=== PATIENT | female | born 1995 | race Caucasian/White ===

== ENCOUNTER 2019-04-07 07:08 | Emergency (ER) | payer MEDICARE, OTHER ==
[~2019-04-07] VITALS: Ht 152.4 cm; Wt 86.0 kg
[~2019-04-07 07:08] MED LIST: ALBU8.5H8; CEPH500T6; ENAL10TA88
[2019-04-07 07:13] VITALS: BP 98/43; PULSE 103; RESP 18; Ht 152.4 cm; Wt 86.0 kg
[2019-04-07] MEDS ORDERED: ONDANSETRON 4 MG INJ IV STA (07:18)
[2019-04-07] MEDS ORDERED: morphine 4 MG/ML VIAL IV STA (07:18)
--- NOTE | 2019-04-07 08:44 | ERD ---
ER Documentation Chief Complaint Chief Complaint CHEST PAIN SINCE THIS AM POST DIALYSIS HPI Patient is a 23-year-old female with hypertension and dialysis who presents with chest pain. The patient was brought in by ambulance. The patient said that she has had chest pain "for a bit". She said the symptoms started this morning at 6 AM while she was getting dialysis. She completed her dialysis and then was brought in by ambulance. She had midsternal chest pain which she describes as a pressure which comes and goes and is worse with palpation. Upon review of old medical records this is the patient's first visit to the emergency department. She does have a primary doctor. ROS All systems reviewed and are negative except as per history of present illness. Medications Home Meds Reported Medications Albuterol Sulfate* (Proair HFA*) 8.5 Gm Hfa.aer.ad 02/19/11 Cephalexin Monohydrate (Cephalexin) 500 Mg Tablet 02/19/11 Enalapril (Enalapril) 10 Mg Tablet 02/19/11 Allergies Allergies: Coded Allergies: No Known Drug Allergies (Verified Allergy, Mild, 02/19/11) PMhx/Soc Anesthesia Reaction: No Hx Neurological Disorder: No Hx Respiratory Disorders: No Hx Cardiac Disorders: No Hx Psychiatric Problems: No Hx Miscellaneous Medical Probl: No Hx Alcohol Use: No Hx Substance Use: No Hx Tobacco Use: No Smoking Status: Never smoker FmHx Family History: diabetes, coronary disease Physical Exam Vitals Vital Signs Date Temp Pulse Resp B/P (MAP) Pulse Ox O2 O2 Flow FiO2 Time Delivery Rate 04/07/19 98.1 103 18 98/43 (61) 99 07:13 Physical Exam Const: No acute distress Head: Atraumatic Eyes: Normal Conjunctiva ENT: Normal External Ears, Nose and Mouth. Neck: Full range of motion. No meningismus. Resp: Clear to auscultation bilaterally Cardio: Regular rate and rhythm, no murmurs, chest wall pain with palpation reproduces pain Abd: Soft, non tender, non distended. Normal bowel sounds Skin: No petechiae or rashes Back: No midline or flank tenderness Ext: No cyanosis, or edema Neur: Awake and alert Psych: Normal Mood and Affect Result Diagram: 04/07/1928 04/07/1928 Results 24 hrs Laboratory Tests Test 04/07/19 07:28 White Blood Count 12.4 10^3/ul Red Blood Count 4.52 10^6/ul Hemoglobin 13.6 g/dl Hematocrit 42.9 % Mean Corpuscular Volume 94.9 fl Mean Corpuscular Hemoglobin 30.1 pg Mean Corpuscular Hemoglobin Concent 31.7 g/dl Red Cell Distribution Width 13.4 % Platelet Count 223 10^3/UL Mean Platelet Volume 9.7 fl Immature Granulocytes % 2.300 % Neutrophils % 78.6 % Lymphocytes % 14.3 % Monocytes % 3.3 % Eosinophils % 0.6 % Basophils % 0.9 % Nucleated Red Blood Cells % 0.0 /100WBC Immature Granulocytes # 0.290 10^3/ul Neutrophils # 9.8 10^3/ul Lymphocytes # 1.8 10^3/ul Monocytes # 0.4 10^3/ul Eosinophils # 0.1 10^3/ul Basophils # 0.1 10^3/ul Nucleated Red Blood Cells # 0.0 10^3/ul Sodium Level 140 mmol/L Potassium Level 3.8 mmol/L Chloride Level 96 mmol/L Carbon Dioxide Level 33 mmol/L Anion Gap 11 Blood Urea Nitrogen 20 mg/dl Creatinine 2.96 mg/dl Est Glomerular Filtrat Rate mL/min 20 mL/min Glucose Level 117 mg/dl Calcium Level 9.6 mg/dl Troponin I < 0.012 ng/ml Serum HCG, Qualitative NEGATIVE Current Medications Medications Dose Sig/Tony Start Time Status Last (Trade) Ordered Route PRN Stop Time Admin Dose Reason Admin Morphine 4 mg ONCE STAT 04/07/19 DC 04/07/19 Sulfate IV 07:18 04/07/19 07:59 (morphine) 07:19 Ondansetron 4 mg ONCE STAT 04/07/19 DC 04/07/19 HCl (Zofran IV 07:18 04/07/19 07:59 Inj) 07:19 Procedures/MDM EKG #1 read by me: Rate/Rhythm: Sinus tachycardia rate of 103 Intervals: Normal Impression: Tachycardia without ischemia EKG #2 read by me: Rate/Rhythm: Sinus tachycardia at a rate of 105 Intervals: Normal Impression: Sinus tachycardia without ischemia Chest x-ray negative per radiology. Patient is a 23-year-old female who presents with chest pain. EKGs did not show any signs of ischemia. Chest x-ray was negative. Troponin is negative. At this point I doubt acute coronary syndrome, pneumonia, pneumothorax, pulmonary embolism, or aortic dissection. Patient will be discharged home but will need to follow-up closely with her primary doctor within 24 to 48 hours. The patient can return for any worsening symptoms. Departure Diagnosis: Primary Impression: Chest pain Chest pain type: unspecified Qualified Codes: R07.9 - Chest pain, unspecified Condition: Fair Patient Instructions: Chest Pain, Uncertain Cause Referrals: Dr. Eugene Additional Instructions: Call your primary care doctor TOMORROW for an appointment during the next 1-2 days.See the doctor sooner or return here if your condition worsens before your appointment time. CECELIA PAULINO MD Apr 07, 2019 08:44
== END 2019-04-07 10:57 | disposition home or self-care (01) ==
LOC: E/R 07:08
DX: I10 Essential (primary) hypertension (principal)
CPT/HCPCS: 71045; 80048; 84484; 84703; 85025; 93005; 96374; 96375; 99285; J2270; J2405

== ENCOUNTER 2019-08-21 18:41 | Inpatient (IN) | payer MEDICARE, OTHER ==
[~2019-08-21] VITALS: Ht 162.6 cm; Wt 120.1 kg
[2019-08-21 23:55] VITALS: Ht 162.6 cm; Wt 120.1 kg
[2019-08-22] VITALS: BP 112/70; PULSE 107; RESP 18
[2019-08-22] MEDS ORDERED: GUAIFENESIN 20 MG/ML 5ML CUP PO PRN (01:30)
[2019-08-22] MEDS ORDERED: ACETAMINOPHEN 325 MG TAB PO PRN ×2 (01:30→07:30)
[2019-08-22] MEDS ORDERED: PENDING SANTYL ORDER FOR WOUND CARE XX PRN (04:00)
[2019-08-22] MEDS ORDERED: [UNRECOGNIZED DRUG - REMARK] XX SCH (04:00)
[2019-08-22] MEDS ORDERED: [UNRECOGNIZED DRUG - REMARK] XX SCH (04:00)
[2019-08-22] MEDS ORDERED: PANTOPRAZOLE (EC) 40 MG TAB PO SCH (06:00)
[2019-08-22 06:42] VITALS: BP 106/52; PULSE 101
[2019-08-22] MEDS: FUROSEMIDE 40 MG TAB PO SCH ×2 (06:42→19:51)
[2019-08-22 07:30] VITALS: BP 96/52; PULSE 98; RESP 20
[2019-08-22] MEDS ORDERED: SEVELAMER CARBONATE 800 MG TABLET PO SCH (07:35)
[2019-08-22] MEDS: PANTOPRAZOLE (EC) 40 MG TAB PO SCH ×2 (07:35→17:35)
[2019-08-22] MEDS: IPRATROPIUM (NEB) 0.5 MG/2.5 ML AMP HHN SCH ×3 (08:02→20:58)
[2019-08-22] MEDS: LEVALBUTEROL (NEB) 1.25 MG/0.5 ML AMP HHN SCH ×3 (08:02→20:58)
[2019-08-22] MEDS: POLYETHYLENE GLYCOL 17 GM PACKET PO SCH ×2 (09:00→21:00)
[2019-08-22] MEDS: METOPROLOL 25 MG TAB PO SCH ×2 (09:00→21:35)
[2019-08-22] MEDS: SEVELAMER CARBONATE 800 MG TABLET PO SCH ×3 (09:00→17:35)
[2019-08-22] MEDS ORDERED: METOPROLOL 25 MG TAB PO SCH (09:00)
[2019-08-22] MEDS ORDERED: LACTULOSE 30ML CUP PO SCH (09:00)
[2019-08-22] MEDS: LACTULOSE 30ML CUP PO SCH ×3 (09:22→21:33)
[2019-08-22] MEDS: SERTRALINE 50 MG TAB PO SCH (09:22)
[2019-08-22] MEDS: MULTIVITAMIN PO SCH (09:22)
[2019-08-22] MEDS: FOLIC ACID PO SCH (09:22)
[2019-08-22] MEDS: ASCORBIC ACID PO SCH (09:22)
[2019-08-22] MEDS: VITAMIN B COMPLEX PO SCH (09:22)
[2019-08-22] MEDS: GABAPENTIN 100 MG CAP PO SCH ×2 (09:25→21:37)
[2019-08-22] MEDS: SENNA TAB PO SCH ×2 (09:25→21:36)
[2019-08-22] MEDS: LIDOCAINE 5% PATCH TD SCH (09:27)
[2019-08-22] MEDS: FLUTICASONE/VILANTEROL 200-25 INH DEVICE INH SCH (09:33)
[2019-08-22] MEDS ORDERED: FLU VACC QS 2019-20 (6MOS UP) 0.5 ML SYG IM* ONE (11:00)
[2019-08-22 14:00] VITALS: BP 112/66; PULSE 105; RESP 18
[2019-08-22] MEDS ORDERED: BISACODYL 10 MG SUPP PR PRN (15:00)
[2019-08-22] MEDS ORDERED: NA PHOSPHATE/BIPHOS 133 ML ENEMA PR PRN (15:00)
[2019-08-22 19:59] VITALS: BP 109/55; PULSE 102; RESP 18
[2019-08-22] MEDS: OXYCODONE/ACETAMINOPHEN (5/325) TAB PO PRN (21:36)
[2019-08-22] MEDS: MONTELUKAST 10 MG TAB PO SCH (21:37)
[2019-08-22] MEDS: TOPIRAMATE 25 MG TAB PO SCH (21:38)
[2019-08-23] VITALS (19 sets, daily range): BP systolic 74–110; BP diastolic 43–65; PULSE 88–100; RESP 16–18
[2019-08-23] MEDS: LEVALBUTEROL (NEB) 1.25 MG/0.5 ML AMP HHN SCH ×4 (02:00→20:28)
[2019-08-23] MEDS: IPRATROPIUM (NEB) 0.5 MG/2.5 ML AMP HHN SCH ×4 (02:00→20:28)
[2019-08-23] MEDS: FUROSEMIDE 40 MG TAB PO SCH ×2 (06:43→18:00)
[2019-08-23] MEDS: FOLIC ACID PO SCH (08:19)
[2019-08-23] MEDS: VITAMIN B COMPLEX PO SCH (08:19)
[2019-08-23] MEDS: ASCORBIC ACID PO SCH (08:19)
[2019-08-23] MEDS: MULTIVITAMIN PO SCH (08:19)
[2019-08-23] MEDS: SEVELAMER CARBONATE 800 MG TABLET PO SCH ×3 (08:20→17:35)
[2019-08-23] MEDS: PANTOPRAZOLE (EC) 40 MG TAB PO SCH ×2 (08:20→17:35)
[2019-08-23] MEDS: METOPROLOL 25 MG TAB PO SCH ×2 (08:24→21:00)
[2019-08-23] MEDS: POLYETHYLENE GLYCOL 17 GM PACKET PO SCH ×2 (08:25→21:00)
[2019-08-23] MEDS: GABAPENTIN 100 MG CAP PO SCH ×2 (08:26→20:16)
[2019-08-23] MEDS: SENNA TAB PO SCH ×2 (08:27→20:16)
[2019-08-23] MEDS: SERTRALINE 50 MG TAB PO SCH (08:27)
[2019-08-23] MEDS: FLUTICASONE/VILANTEROL 200-25 INH DEVICE INH SCH (08:28)
[2019-08-23] MEDS: LACTULOSE 30ML CUP PO SCH ×3 (08:28→20:18)
[2019-08-23] MEDS: LIDOCAINE 5% PATCH TD SCH (11:19)
[2019-08-23] MEDS: HEPARIN 5,000 UNIT/1 ML VIAL SC SCH ×2 (11:24→20:49)
[2019-08-23] MEDS: BUPROPION 100 MG TAB PO SCH (13:00)
[2019-08-23] MEDS: LIDOCAINE 1% (MDV) 20 ML INJ INJ PRN (15:50)
[2019-08-23] MEDS ORDERED: CEFTRIAXONE 1 GM/50 ML (PMX) 50 ML IVPB SCH (16:00)
[2019-08-23] MEDS ORDERED: VANCOMYCIN IV PER PHARMACY XX SCH (16:30)
[2019-08-23] MEDS: ALBUMIN HUMAN 25% 100 ML IV PRN (17:27)
[2019-08-23] MEDS ORDERED: VANCOMYCIN HCL 2 GM in SOD CHLORIDE 0.9% 500 ML IVPB SCH (20:00)
[2019-08-23] MEDS: MONTELUKAST 10 MG TAB PO SCH (20:17)
[2019-08-23] MEDS: TOPIRAMATE 25 MG TAB PO SCH (20:17)
[2019-08-23] MEDS: OXYCODONE/ACETAMINOPHEN (5/325) TAB PO PRN (20:17)
[2019-08-23] MEDS ORDERED: AMOXICILLIN 250 MG CAP PO SCH (23:00)
[2019-08-24 02:00] VITALS: BP 107/63; PULSE 96; RESP 18
[2019-08-24] MEDS: LEVALBUTEROL (NEB) 1.25 MG/0.5 ML AMP HHN SCH ×4 (02:00→19:58)
[2019-08-24] MEDS: IPRATROPIUM (NEB) 0.5 MG/2.5 ML AMP HHN SCH ×4 (02:00→19:58)
[2019-08-24] MEDS: FUROSEMIDE 40 MG TAB PO SCH ×2 (06:34→17:57)
[2019-08-24] MEDS: AMOXICILLIN 250 MG CAP PO SCH ×2 (06:34→15:08)
[2019-08-24 08:00] VITALS: BP 129/56; PULSE 93; RESP 18
[2019-08-24] MEDS: SEVELAMER CARBONATE 800 MG TABLET PO SCH ×3 (08:40→17:56)
[2019-08-24] MEDS: FOLIC ACID PO SCH (08:40)
[2019-08-24] MEDS: PANTOPRAZOLE (EC) 40 MG TAB PO SCH ×2 (08:40→17:57)
[2019-08-24] MEDS: VITAMIN B COMPLEX PO SCH (08:40)
[2019-08-24] MEDS: ASCORBIC ACID PO SCH (08:40)
[2019-08-24] MEDS: MULTIVITAMIN PO SCH (08:40)
[2019-08-24] MEDS: POLYETHYLENE GLYCOL 17 GM PACKET PO SCH ×2 (09:00→20:49)
[2019-08-24] MEDS: LIDOCAINE 5% PATCH TD SCH (09:00)
[2019-08-24] MEDS: HEPARIN 5,000 UNIT/1 ML VIAL SC SCH ×2 (09:20→20:55)
[2019-08-24] MEDS: SENNA TAB PO SCH ×2 (09:21→20:52)
[2019-08-24] MEDS: BUPROPION 100 MG TAB PO SCH (09:22)
[2019-08-24] MEDS: LACTULOSE 30ML CUP PO SCH ×3 (09:22→20:49)
[2019-08-24] MEDS: SERTRALINE 50 MG TAB PO SCH (09:22)
[2019-08-24] MEDS: GABAPENTIN 100 MG CAP PO SCH ×2 (09:22→20:52)
[2019-08-24] MEDS: METOPROLOL 25 MG TAB PO SCH ×2 (09:25→20:50)
[2019-08-24] MEDS: FLUTICASONE/VILANTEROL 200-25 INH DEVICE INH SCH (09:25)
[2019-08-24 14:00] VITALS: BP 103/53; PULSE 91; RESP 18
[2019-08-24] MEDS ORDERED: FLU VACC QS 2019-20 (6MOS UP) 0.5 ML SYG IM* ONE (14:00)
[2019-08-24] MEDS ORDERED: VANCOMYCIN IV PER PHARMACY XX SCH (19:00)
[2019-08-24 20:00] VITALS: BP 98/70; PULSE 92; RESP 18
[2019-08-24] MEDS: TOPIRAMATE 25 MG TAB PO SCH (20:52)
[2019-08-24] MEDS: MONTELUKAST 10 MG TAB PO SCH (20:52)
[2019-08-25] VITALS (19 sets, daily range): BP systolic 89–116; BP diastolic 50–62; PULSE 82–97; RESP 18–20
[2019-08-25] MEDS: LEVALBUTEROL (NEB) 1.25 MG/0.5 ML AMP HHN SCH ×4 (01:50→20:00)
[2019-08-25] MEDS: IPRATROPIUM (NEB) 0.5 MG/2.5 ML AMP HHN SCH ×4 (01:50→20:00)
[2019-08-25] MEDS ORDERED: VANCOMYCIN IV PER PHARMACY XX SCH (06:00)
[2019-08-25] MEDS ORDERED: VANCOMYCIN HCL 2 GM in SOD CHLORIDE 0.9% 500 ML IVPB SCH (06:00)
[2019-08-25] MEDS: FUROSEMIDE 40 MG TAB PO SCH (06:49)
[2019-08-25] MEDS: SEVELAMER CARBONATE 800 MG TABLET PO SCH ×3 (07:35→17:35)
[2019-08-25] MEDS: PANTOPRAZOLE (EC) 40 MG TAB PO SCH ×2 (08:56→17:35)
[2019-08-25] MEDS: FOLIC ACID PO SCH (08:58)
[2019-08-25] MEDS: MULTIVITAMIN PO SCH (08:58)
[2019-08-25] MEDS: VITAMIN B COMPLEX PO SCH (08:58)
[2019-08-25] MEDS: ASCORBIC ACID PO SCH (08:58)
[2019-08-25] MEDS: SERTRALINE 50 MG TAB PO SCH (08:58)
[2019-08-25] MEDS: BUPROPION 100 MG TAB PO SCH (08:58)
[2019-08-25] MEDS: SENNA TAB PO SCH ×2 (08:58→21:00)
[2019-08-25] MEDS: GABAPENTIN 100 MG CAP PO SCH ×2 (08:59→20:49)
[2019-08-25] MEDS: LIDOCAINE 5% PATCH TD SCH ×3 (09:00→10:07)
[2019-08-25] MEDS: LACTULOSE 30ML CUP PO SCH ×3 (09:00→21:00)
[2019-08-25] MEDS: METOPROLOL 25 MG TAB PO SCH (09:00)
[2019-08-25] MEDS: POLYETHYLENE GLYCOL 17 GM PACKET PO SCH ×2 (09:00→21:00)
[2019-08-25] MEDS: FLUTICASONE/VILANTEROL 200-25 INH DEVICE INH SCH (09:04)
[2019-08-25] MEDS: HEPARIN 5,000 UNIT/1 ML VIAL SC SCH ×2 (09:06→21:00)
[2019-08-25] MEDS ORDERED: MIDODRINE 5 MG TAB PO PRN (11:00)
[2019-08-25] MEDS: LIDOCAINE 1% (MDV) 20 ML INJ INJ PRN (19:51)
[2019-08-25] MEDS: ALBUMIN HUMAN 25% 100 ML IV PRN (19:59)
[2019-08-25] MEDS: TOPIRAMATE 25 MG TAB PO SCH (20:49)
[2019-08-25] MEDS: MONTELUKAST 10 MG TAB PO SCH (20:49)
[2019-08-25] MEDS: AMOXICILLIN 250 MG CAP PO SCH (23:52)
[2019-08-25] MEDS: OXYCODONE/ACETAMINOPHEN (5/325) TAB PO PRN (23:58)
[2019-08-26] MEDS: LEVALBUTEROL (NEB) 1.25 MG/0.5 ML AMP HHN SCH ×4 (01:42→20:52)
[2019-08-26] MEDS: IPRATROPIUM (NEB) 0.5 MG/2.5 ML AMP HHN SCH ×4 (01:42→20:52)
[2019-08-26 02:00] VITALS: BP 97/50; PULSE 82; RESP 18
[2019-08-26 07:00] VITALS: BP 123/59; PULSE 89; RESP 18
[2019-08-26] MEDS: FOLIC ACID PO SCH (08:08)
[2019-08-26] MEDS: VITAMIN B COMPLEX PO SCH (08:08)
[2019-08-26] MEDS: SERTRALINE 50 MG TAB PO SCH (08:08)
[2019-08-26] MEDS: MULTIVITAMIN PO SCH (08:08)
[2019-08-26] MEDS: ASCORBIC ACID PO SCH (08:08)
[2019-08-26] MEDS: BUPROPION 100 MG TAB PO SCH (08:08)
[2019-08-26] MEDS: PANTOPRAZOLE (EC) 40 MG TAB PO SCH ×2 (08:08→18:19)
[2019-08-26] MEDS: SENNA TAB PO SCH ×2 (08:09→20:56)
[2019-08-26] MEDS: GABAPENTIN 100 MG CAP PO SCH ×2 (08:10→20:55)
[2019-08-26] MEDS: LIDOCAINE 5% PATCH TD SCH (08:11)
[2019-08-26] MEDS: LACTULOSE 30ML CUP PO SCH ×3 (08:12→21:05)
[2019-08-26] MEDS: FLUTICASONE/VILANTEROL 200-25 INH DEVICE INH SCH (08:14)
[2019-08-26] MEDS: HEPARIN 5,000 UNIT/1 ML VIAL SC SCH ×2 (08:15→21:30)
[2019-08-26] MEDS: SEVELAMER CARBONATE 800 MG TABLET PO SCH ×3 (08:23→18:19)
[2019-08-26] MEDS: METOPROLOL 25 MG TAB PO SCH ×3 (08:24→20:58)
[2019-08-26] MEDS: POLYETHYLENE GLYCOL 17 GM PACKET PO SCH ×2 (08:37→20:58)
[2019-08-26 14:00] VITALS: BP 85/42; PULSE 51; RESP 18
[2019-08-26] MEDS: AMOXICILLIN 250 MG CAP PO SCH (14:49)
[2019-08-26 18:00] VITALS: BP 107/58; PULSE 98; RESP 18
[2019-08-26 20:00] VITALS: BP 92/49; PULSE 98; RESP 18
[2019-08-26] MEDS: TOPIRAMATE 25 MG TAB PO SCH (20:55)
[2019-08-26] MEDS: MONTELUKAST 10 MG TAB PO SCH (20:56)
[2019-08-26] MEDS: OXYCODONE/ACETAMINOPHEN (5/325) TAB PO PRN (21:00)
[2019-08-27 02:00] VITALS: BP 110/52; PULSE 95; RESP 18
[2019-08-27] MEDS: LEVALBUTEROL (NEB) 1.25 MG/0.5 ML AMP HHN SCH ×4 (02:00→19:13)
[2019-08-27] MEDS: IPRATROPIUM (NEB) 0.5 MG/2.5 ML AMP HHN SCH ×4 (02:00→19:13)
[2019-08-27 07:00] VITALS: BP 127/62; PULSE 85; RESP 18
[2019-08-27 08:45] VITALS: BP 120/60; PULSE 83; RESP 18
[2019-08-27] MEDS: SENNA TAB PO SCH ×2 (08:57→21:18)
[2019-08-27] MEDS: SEVELAMER CARBONATE 800 MG TABLET PO SCH ×3 (08:57→18:37)
[2019-08-27] MEDS: SERTRALINE 50 MG TAB PO SCH (08:58)
[2019-08-27] MEDS: GABAPENTIN 100 MG CAP PO SCH ×2 (08:58→21:18)
[2019-08-27] MEDS: PANTOPRAZOLE (EC) 40 MG TAB PO SCH ×2 (08:58→18:37)
[2019-08-27] MEDS: BUPROPION 100 MG TAB PO SCH (08:58)
[2019-08-27] MEDS: MULTIVITAMIN PO SCH (08:59)
[2019-08-27] MEDS: LACTULOSE 30ML CUP PO SCH ×3 (08:59→21:19)
[2019-08-27] MEDS: FLUTICASONE/VILANTEROL 200-25 INH DEVICE INH SCH (08:59)
[2019-08-27] MEDS: ASCORBIC ACID PO SCH (08:59)
[2019-08-27] MEDS: VITAMIN B COMPLEX PO SCH (08:59)
[2019-08-27] MEDS: FOLIC ACID PO SCH (08:59)
[2019-08-27] MEDS: POLYETHYLENE GLYCOL 17 GM PACKET PO SCH ×2 (09:00→21:00)
[2019-08-27] MEDS: LIDOCAINE 5% PATCH TD SCH (09:00)
[2019-08-27] MEDS: METOPROLOL 25 MG TAB PO SCH ×2 (09:00→21:00)
[2019-08-27] MEDS: HEPARIN 5,000 UNIT/1 ML VIAL SC SCH ×2 (09:08→21:37)
[2019-08-27 14:00] VITALS: BP 111/64; PULSE 108; RESP 18
[2019-08-27] MEDS: AMOXICILLIN 250 MG CAP PO SCH (14:36)
[2019-08-27 19:30] VITALS: BP 109/48; RESP 18
[2019-08-27] MEDS: MONTELUKAST 10 MG TAB PO SCH (21:18)
[2019-08-27] MEDS: TOPIRAMATE 25 MG TAB PO SCH (21:18)
[2019-08-27] MEDS: OXYCODONE/ACETAMINOPHEN (5/325) TAB PO PRN (21:18)
[2019-08-28] VITALS (17 sets, daily range): BP systolic 108–140; BP diastolic 10–64; PULSE 84–100; RESP 18–20
[2019-08-28] MEDS: IPRATROPIUM (NEB) 0.5 MG/2.5 ML AMP HHN SCH ×4 (01:43→20:00)
[2019-08-28] MEDS: LEVALBUTEROL (NEB) 1.25 MG/0.5 ML AMP HHN SCH ×4 (01:43→20:00)
[2019-08-28] MEDS: POLYETHYLENE GLYCOL 17 GM PACKET PO SCH ×2 (09:00→21:00)
[2019-08-28] MEDS: METOPROLOL 25 MG TAB PO SCH ×2 (09:00→22:04)
[2019-08-28] MEDS: LIDOCAINE 5% PATCH TD SCH (09:00)
[2019-08-28] MEDS: FOLIC ACID PO SCH (09:21)
[2019-08-28] MEDS: ASCORBIC ACID PO SCH (09:21)
[2019-08-28] MEDS: BUPROPION 100 MG TAB PO SCH (09:21)
[2019-08-28] MEDS: LACTULOSE 30ML CUP PO SCH ×3 (09:21→22:05)
[2019-08-28] MEDS: VITAMIN B COMPLEX PO SCH (09:21)
[2019-08-28] MEDS: FLUTICASONE/VILANTEROL 200-25 INH DEVICE INH SCH (09:21)
[2019-08-28] MEDS: MULTIVITAMIN PO SCH (09:21)
[2019-08-28] MEDS: GABAPENTIN 100 MG CAP PO SCH ×2 (09:22→22:03)
[2019-08-28] MEDS: SERTRALINE 50 MG TAB PO SCH (09:22)
[2019-08-28] MEDS: SEVELAMER CARBONATE 800 MG TABLET PO SCH ×3 (09:22→17:49)
[2019-08-28] MEDS: SENNA TAB PO SCH ×2 (09:22→22:03)
[2019-08-28] MEDS: PANTOPRAZOLE (EC) 40 MG TAB PO SCH ×2 (09:22→17:49)
[2019-08-28] MEDS: HEPARIN 5,000 UNIT/1 ML VIAL SC SCH ×2 (09:26→22:21)
[2019-08-28] MEDS: AMOXICILLIN 250 MG CAP PO SCH (15:04)
[2019-08-28] MEDS: LIDOCAINE 1% (MDV) 20 ML INJ INJ PRN (18:08)
[2019-08-28] MEDS: TOPIRAMATE 25 MG TAB PO SCH (22:03)
[2019-08-28] MEDS: MONTELUKAST 10 MG TAB PO SCH (22:03)
[2019-08-28] MEDS: OXYCODONE/ACETAMINOPHEN (5/325) TAB PO PRN (22:04)
[2019-08-29] MEDS: LEVALBUTEROL (NEB) 1.25 MG/0.5 ML AMP HHN SCH ×4 (01:05→20:31)
[2019-08-29] MEDS: IPRATROPIUM (NEB) 0.5 MG/2.5 ML AMP HHN SCH ×4 (01:05→20:31)
[2019-08-29 06:19] VITALS: BP 98/58; PULSE 82; RESP 18
[2019-08-29 07:30] VITALS: BP 134/66; PULSE 76; RESP 20
[2019-08-29] MEDS: FLUTICASONE/VILANTEROL 200-25 INH DEVICE INH SCH (08:43)
[2019-08-29] MEDS: BUPROPION 100 MG TAB PO SCH (08:43)
[2019-08-29] MEDS: LACTULOSE 30ML CUP PO SCH ×3 (08:43→20:25)
[2019-08-29] MEDS: GABAPENTIN 100 MG CAP PO SCH ×2 (08:44→20:25)
[2019-08-29] MEDS: METOPROLOL 25 MG TAB PO SCH ×2 (08:46→20:26)
[2019-08-29] MEDS: HEPARIN 5,000 UNIT/1 ML VIAL SC SCH ×2 (08:48→20:33)
[2019-08-29] MEDS: PANTOPRAZOLE (EC) 40 MG TAB PO SCH ×2 (08:51→17:42)
[2019-08-29] MEDS: SERTRALINE 50 MG TAB PO SCH (08:51)
[2019-08-29] MEDS: SENNA TAB PO SCH ×2 (08:51→20:25)
[2019-08-29] MEDS: ASCORBIC ACID PO SCH (08:54)
[2019-08-29] MEDS: VITAMIN B COMPLEX PO SCH (08:54)
[2019-08-29] MEDS: FOLIC ACID PO SCH (08:54)
[2019-08-29] MEDS: MULTIVITAMIN PO SCH (08:54)
[2019-08-29] MEDS: SEVELAMER CARBONATE 800 MG TABLET PO SCH ×3 (08:54→17:41)
[2019-08-29] MEDS: LIDOCAINE 5% PATCH TD SCH (09:00)
[2019-08-29] MEDS: POLYETHYLENE GLYCOL 17 GM PACKET PO SCH ×2 (09:00→21:00)
[2019-08-29 14:00] VITALS: BP 121/57; PULSE 88; RESP 20
[2019-08-29] MEDS: AMOXICILLIN 250 MG CAP PO SCH (15:13)
[2019-08-29 20:00] VITALS: BP 118/62; PULSE 77; RESP 19
[2019-08-29] MEDS: MONTELUKAST 10 MG TAB PO SCH (20:25)
[2019-08-29] MEDS: OXYCODONE/ACETAMINOPHEN (5/325) TAB PO PRN (20:25)
[2019-08-29] MEDS: TOPIRAMATE 25 MG TAB PO SCH (20:25)
[2019-08-30] VITALS (16 sets, daily range): BP systolic 89–144; BP diastolic 44–73; PULSE 82–103; RESP 16–19
[2019-08-30] MEDS: LEVALBUTEROL (NEB) 1.25 MG/0.5 ML AMP HHN SCH ×4 (02:00→18:15)
[2019-08-30] MEDS: IPRATROPIUM (NEB) 0.5 MG/2.5 ML AMP HHN SCH ×4 (02:00→18:15)
[2019-08-30] MEDS ORDERED: LIDOCAINE 4% CR TOP PRN (08:00)
[2019-08-30] MEDS: PANTOPRAZOLE (EC) 40 MG TAB PO SCH ×2 (08:00→17:45)
[2019-08-30] MEDS: FOLIC ACID PO SCH (08:01)
[2019-08-30] MEDS: MULTIVITAMIN PO SCH (08:01)
[2019-08-30] MEDS: SEVELAMER CARBONATE 800 MG TABLET PO SCH ×3 (08:01→17:45)
[2019-08-30] MEDS: ASCORBIC ACID PO SCH (08:01)
[2019-08-30] MEDS: VITAMIN B COMPLEX PO SCH (08:01)
[2019-08-30] MEDS: POLYETHYLENE GLYCOL 17 GM PACKET PO SCH ×2 (09:00→21:00)
[2019-08-30] MEDS: LIDOCAINE 5% PATCH TD SCH (09:00)
[2019-08-30] MEDS: METOPROLOL 25 MG TAB PO SCH ×2 (09:00→21:00)
[2019-08-30] MEDS: LACTULOSE 30ML CUP PO SCH ×3 (09:15→22:43)
[2019-08-30] MEDS: GABAPENTIN 100 MG CAP PO SCH ×2 (09:16→22:43)
[2019-08-30] MEDS: FLUTICASONE/VILANTEROL 200-25 INH DEVICE INH SCH (09:16)
[2019-08-30] MEDS: SENNA TAB PO SCH ×2 (09:16→22:43)
[2019-08-30] MEDS: BUPROPION 100 MG TAB PO SCH (09:17)
[2019-08-30] MEDS: SERTRALINE 50 MG TAB PO SCH (09:17)
[2019-08-30] MEDS: HEPARIN 5,000 UNIT/1 ML VIAL SC SCH ×2 (09:20→22:53)
[2019-08-30] MEDS: LIDOCAINE 1% (MDV) 20 ML INJ INJ PRN (18:57)
[2019-08-30] MEDS: OXYCODONE/ACETAMINOPHEN (5/325) TAB PO PRN (22:42)
[2019-08-30] MEDS: TOPIRAMATE 25 MG TAB PO SCH (22:43)
[2019-08-30] MEDS: MONTELUKAST 10 MG TAB PO SCH (22:43)
[2019-08-31] MEDS: IPRATROPIUM (NEB) 0.5 MG/2.5 ML AMP HHN SCH ×4 (01:49→20:00)
[2019-08-31] MEDS: LEVALBUTEROL (NEB) 1.25 MG/0.5 ML AMP HHN SCH ×4 (01:49→20:00)
[2019-08-31 02:00] VITALS: BP 89/51; PULSE 83; RESP 18
[2019-08-31 07:30] VITALS: BP 109/55; PULSE 79; RESP 20
[2019-08-31] MEDS: PANTOPRAZOLE (EC) 40 MG TAB PO SCH ×2 (07:53→17:38)
[2019-08-31] MEDS: VITAMIN B COMPLEX PO SCH (07:53)
[2019-08-31] MEDS: SEVELAMER CARBONATE 800 MG TABLET PO SCH ×4 (07:53→17:38)
[2019-08-31] MEDS: ASCORBIC ACID PO SCH (07:53)
[2019-08-31] MEDS: FOLIC ACID PO SCH (07:53)
[2019-08-31] MEDS: MULTIVITAMIN PO SCH (07:53)
[2019-08-31 08:00] VITALS: BP 109/55; PULSE 79; RESP 20
[2019-08-31] MEDS: LIDOCAINE 5% PATCH TD SCH (09:00)
[2019-08-31] MEDS: METOPROLOL 25 MG TAB PO SCH ×2 (09:00→20:35)
[2019-08-31] MEDS: POLYETHYLENE GLYCOL 17 GM PACKET PO SCH (09:00)
[2019-08-31] MEDS: FLUTICASONE/VILANTEROL 200-25 INH DEVICE INH SCH (09:25)
[2019-08-31] MEDS: SERTRALINE 50 MG TAB PO SCH (09:26)
[2019-08-31] MEDS: GABAPENTIN 100 MG CAP PO SCH ×2 (09:26→20:35)
[2019-08-31] MEDS: LACTULOSE 30ML CUP PO SCH ×3 (09:26→20:31)
[2019-08-31] MEDS: SENNA TAB PO SCH ×2 (09:26→20:36)
[2019-08-31] MEDS: BUPROPION 100 MG TAB PO SCH (09:26)
[2019-08-31] MEDS: HEPARIN 5,000 UNIT/1 ML VIAL SC SCH ×2 (09:38→20:34)
[2019-08-31] MEDS ORDERED: LIDOCAINE 5% PATCH TD PRN (11:00)
[2019-08-31 14:00] VITALS: BP 116/56; PULSE 95; RESP 18
[2019-08-31] MEDS: OXYCODONE/ACETAMINOPHEN (5/325) TAB PO PRN (19:05)
[2019-08-31 19:26] VITALS: BP 132/63; PULSE 92; RESP 18
[2019-08-31] MEDS: TOPIRAMATE 25 MG TAB PO SCH (20:32)
[2019-08-31] MEDS: MONTELUKAST 10 MG TAB PO SCH (20:36)
[2019-09-01] VITALS (18 sets, daily range): BP systolic 99–135; BP diastolic 47–87; PULSE 71–103; RESP 18
[2019-09-01] MEDS: LEVALBUTEROL (NEB) 1.25 MG/0.5 ML AMP HHN SCH ×4 (02:00→19:48)
[2019-09-01] MEDS: IPRATROPIUM (NEB) 0.5 MG/2.5 ML AMP HHN SCH ×4 (02:00→19:48)
[2019-09-01] MEDS: FOLIC ACID PO SCH (08:41)
[2019-09-01] MEDS: ASCORBIC ACID PO SCH (08:41)
[2019-09-01] MEDS: SEVELAMER CARBONATE 800 MG TABLET PO SCH ×3 (08:41→19:52)
[2019-09-01] MEDS: MULTIVITAMIN PO SCH (08:41)
[2019-09-01] MEDS: VITAMIN B COMPLEX PO SCH (08:41)
[2019-09-01] MEDS: PANTOPRAZOLE (EC) 40 MG TAB PO SCH ×2 (08:42→19:52)
[2019-09-01] MEDS: FLUTICASONE/VILANTEROL 200-25 INH DEVICE INH SCH (08:45)
[2019-09-01] MEDS: LACTULOSE 30ML CUP PO SCH ×3 (08:47→21:38)
[2019-09-01] MEDS: SENNA TAB PO SCH ×2 (08:47→21:37)
[2019-09-01] MEDS: BUPROPION 100 MG TAB PO SCH (08:49)
[2019-09-01] MEDS: GABAPENTIN 100 MG CAP PO SCH ×2 (08:49→21:38)
[2019-09-01] MEDS: SERTRALINE 50 MG TAB PO SCH (08:50)
[2019-09-01] MEDS: METOPROLOL 25 MG TAB PO SCH ×2 (09:00→21:00)
[2019-09-01] MEDS: HEPARIN 5,000 UNIT/1 ML VIAL SC SCH ×2 (09:09→22:00)
[2019-09-01] MEDS ORDERED: EPOETIN ALFA-EPBX (ESRD) 10,000 UNIT/ML VIAL SC ONE (17:00)
[2019-09-01] MEDS: OXYCODONE/ACETAMINOPHEN (5/325) TAB PO PRN (19:52)
[2019-09-01] MEDS: MONTELUKAST 10 MG TAB PO SCH (21:36)
[2019-09-01] MEDS: TOPIRAMATE 25 MG TAB PO SCH (21:38)
[2019-09-02] MEDS: LEVALBUTEROL (NEB) 1.25 MG/0.5 ML AMP HHN SCH ×4 (01:48→19:39)
[2019-09-02] MEDS: IPRATROPIUM (NEB) 0.5 MG/2.5 ML AMP HHN SCH ×4 (01:49→19:39)
[2019-09-02 03:00] VITALS: BP 118/60; PULSE 86; RESP 16
[2019-09-02 07:00] VITALS: BP 116/57; PULSE 74; RESP 18
[2019-09-02] MEDS: FLUTICASONE/VILANTEROL 200-25 INH DEVICE INH SCH (09:53)
[2019-09-02] MEDS: BUPROPION 100 MG TAB PO SCH (09:53)
[2019-09-02] MEDS: GABAPENTIN 100 MG CAP PO SCH ×2 (09:53→20:51)
[2019-09-02] MEDS: LACTULOSE 30ML CUP PO SCH ×3 (09:53→20:49)
[2019-09-02] MEDS: SERTRALINE 50 MG TAB PO SCH (09:53)
[2019-09-02] MEDS: METOPROLOL 25 MG TAB PO SCH ×2 (09:54→20:52)
[2019-09-02] MEDS: HEPARIN 5,000 UNIT/1 ML VIAL SC SCH ×2 (09:58→20:54)
[2019-09-02] MEDS: SENNA TAB PO SCH ×2 (09:59→20:49)
[2019-09-02] MEDS: VITAMIN B COMPLEX PO SCH (10:09)
[2019-09-02] MEDS: FOLIC ACID PO SCH (10:09)
[2019-09-02] MEDS: ASCORBIC ACID PO SCH (10:09)
[2019-09-02] MEDS: SEVELAMER CARBONATE 800 MG TABLET PO SCH ×3 (10:09→17:50)
[2019-09-02] MEDS: MULTIVITAMIN PO SCH (10:09)
[2019-09-02] MEDS: PANTOPRAZOLE (EC) 40 MG TAB PO SCH ×2 (10:10→17:50)
[2019-09-02 14:00] VITALS: BP 120/56; PULSE 94; RESP 18
[2019-09-02 20:00] VITALS: BP 132/68; PULSE 80; RESP 18
[2019-09-02] MEDS: MONTELUKAST 10 MG TAB PO SCH (20:51)
[2019-09-02] MEDS: TOPIRAMATE 25 MG TAB PO SCH (20:52)
[2019-09-02] MEDS: OXYCODONE/ACETAMINOPHEN (5/325) TAB PO PRN (20:56)
[2019-09-03] MEDS: LEVALBUTEROL (NEB) 1.25 MG/0.5 ML AMP HHN SCH ×2 (01:51→08:52)
[2019-09-03] MEDS: IPRATROPIUM (NEB) 0.5 MG/2.5 ML AMP HHN SCH ×2 (01:51→08:52)
[2019-09-03 02:00] VITALS: BP 118/58; PULSE 78; RESP 18
[2019-09-03 07:00] VITALS: BP 118/59; PULSE 85; RESP 18
[2019-09-03] MEDS: SEVELAMER CARBONATE 800 MG TABLET PO SCH ×2 (09:06→12:37)
[2019-09-03] MEDS: VITAMIN B COMPLEX PO SCH (09:06)
[2019-09-03] MEDS: GABAPENTIN 100 MG CAP PO SCH (09:06)
[2019-09-03] MEDS: FOLIC ACID PO SCH (09:06)
[2019-09-03] MEDS: PANTOPRAZOLE (EC) 40 MG TAB PO SCH (09:06)
[2019-09-03] MEDS: BUPROPION 100 MG TAB PO SCH (09:06)
[2019-09-03] MEDS: MULTIVITAMIN PO SCH (09:06)
[2019-09-03] MEDS: LACTULOSE 30ML CUP PO SCH ×2 (09:06→12:37)
[2019-09-03] MEDS: ASCORBIC ACID PO SCH (09:06)
[2019-09-03] MEDS: METOPROLOL 25 MG TAB PO SCH (09:09)
[2019-09-03] MEDS: FLUTICASONE/VILANTEROL 200-25 INH DEVICE INH SCH (09:10)
[2019-09-03] MEDS: HEPARIN 5,000 UNIT/1 ML VIAL SC SCH (09:19)
[2019-09-03] MEDS: SENNA TAB PO SCH (09:28)
[2019-09-03] MEDS: SERTRALINE 50 MG TAB PO SCH (09:28)
== END 2019-09-03 13:05 | disposition home health service (06) | DRG 945 ==
LOC: VRC 23:24
PROVIDERS: ADMIT Physical Medicine & Rehabilitation; ATTEND Internal Medicine Nephrology
PROC: F07Z5ZZ Bed Mobility Treatment (ICD-10-PCS; principal; 2019-08-22)
PROC: F07Z8ZZ Transfer Training Treatment (ICD-10-PCS; 2019-08-22)
PROC: F07Z9ZZ Gait Training/Functional Ambulation Treatment (ICD-10-PCS; 2019-08-22)
PROC: F08Z2ZZ Grooming/Personal Hygiene Treatment (ICD-10-PCS; 2019-08-22)
PROC: F08Z1ZZ Dressing Techniques Treatment (ICD-10-PCS; 2019-08-22)
PROC: F08Z0ZZ Bathing/Showering Techniques Treatment (ICD-10-PCS; 2019-08-22)
PROC: 5A1D70Z Performance of Urinary Filtration, Intermittent, Less than 6 Hours Per Day (ICD-10-PCS; 2019-08-23)
DX: Z51.89 Encounter for other specified aftercare (principal); A41.9 Sepsis, unspecified organism; N18.6 End stage renal disease; I12.0 Hypertensive chronic kidney disease with stage 5 chronic kidney disease or end stage renal disease; N39.0 Urinary tract infection, site not specified; Z68.42 Body mass index [BMI] 45.0-49.9, adult; F33.2 Major depressive disorder, recurrent severe without psychotic features; G93.2 Benign intracranial hypertension; B95.4 Other streptococcus as the cause of diseases classified elsewhere; D63.1 Anemia in chronic kidney disease; E87.70 Fluid overload, unspecified; E87.8 Other disorders of electrolyte and fluid balance, not elsewhere classified; E66.01 Morbid (severe) obesity due to excess calories; F41.1 Generalized anxiety disorder; G25.3 Myoclonus; G47.30 Sleep apnea, unspecified; J45.50 Severe persistent asthma, uncomplicated; K21.9 Gastro-esophageal reflux disease without esophagitis; M79.632 Pain in left forearm; K59.00 Constipation, unspecified; M41.9 Scoliosis, unspecified; Z74.09 Other reduced mobility; Z74.1 Need for assistance with personal care; Z99.2 Dependence on renal dialysis; Z87.09 Personal history of other diseases of the respiratory system
CPT/HCPCS: 80048; 80053; 81001; 83735; 84100; 84145; 84443; 85025; 86706; 87081; 87086; 87340; 90686; 90935; 93931; 94640; 94664; 97110; 97112; 97116; 97162; 97167; 97530; 97535; 97542; J1644; J3370; J7040; P9047; Q5105